=== PATIENT | male | born 1985 ===

== ENCOUNTER → 2016-10-19 | Outpatient (CLI) | payer OTHER | LOC: C.LABSPEC 10:04 | PROVIDERS: ATTEND Nurse Practitioner Adult Health | DX: R04.2 Hemoptysis (principal) ==

== ENCOUNTER → 2016-10-20 | Outpatient (CLI) | payer OTHER | LOC: C.LABSPEC 12:36 | PROVIDERS: ATTEND Nurse Practitioner Adult Health | DX: R04.2 Hemoptysis (principal) ==

== ENCOUNTER → 2016-10-21 | Outpatient (CLI) | payer OTHER | LOC: C.LABSPEC 12:40 | PROVIDERS: ATTEND Nurse Practitioner Adult Health | DX: R04.2 Hemoptysis (principal) ==